=== PATIENT | male | born 1940 | race Caucasian/White ===

== ENCOUNTER 2016-12-02 16:19 | Observation (INO) ==
[2016-12-02 17:41] LABS: Basophils % 0.7 %; Eosinophils # 0.3 K/mcL (0.0-0.6); Eosinophils % 5.5 %; Hematocrit 49.3 % (37.5-50.1); Hemoglobin 16.4 g/dL (12.9-16.9); Immature Granulocytes % 0.3 % (0-4); Lymphocytes # 1.4 K/mcL (0.6-4.6); Lymphocytes % 24.7 %; Mean Corpuscular HGB Conc 33.3 g/dL (31.6-35.5); Mean Corpuscular Hemoglobin 29.5 pg (28.0-33.3); Mean Corpuscular Volume 88.7 fL (83.0-100.0); Mean Platelet Volume 11.3 fL (9.4-12.4); Monocytes # 0.5 K/mcL (0.0-1.3); Monocytes % 7.8 %; Neutrophils # 3.5 K/mcL (1.6-8.9); Platelet Count 143 K/mcL (140-400); Red Blood Count 5.56 M/mcL (4.19-5.50); Red Cell Distribution Width 13.5 % (11.5-14.5)
[2016-12-02 17:48] LABS: INR 1.1; Prothrombin Time 11.8 Seconds (9.4-12.1)
[2016-12-02 17:50] LABS: Activated Partial Thrombo Time 34.9 Seconds (26.0-36.0)
[2016-12-02 17:54] LABS: BUN/Creatinine Ratio 19 (6-26); Blood Urea Nitrogen 20 mg/dL (8-26); Calcium 9.2 mg/dL (8.6-10.8); Carbon Dioxide 26 mEq/L (19-29); Chloride 106 mEq/L (98-109); Glucose 105 mg/dL (70-99); Osmolality,Calculated 293 (280-300); Potassium 4.4 mEq/L (3.5-4.5); Sodium 140 mEq/L (136-145); eGFR For African Americans > 60 (> 60); eGFR For Non-African Americans > 60 (> 60)
[2016-12-03 00:35] LABS: Chol/HDL Ratio 4.2 (0-4.9)
[2016-12-05 05:38] LABS: Basophils # 0.1 K/mcL (0.0-0.2); Eosinophils # 0.4 K/mcL (0.0-0.6); Eosinophils % 6.4 %; Hematocrit 47.3 % (37.5-50.1); Hemoglobin 15.1 g/dL (12.9-16.9); Immature Granulocytes % 0.3 % (0-4); Lymphocytes # 1.7 K/mcL (0.6-4.6); Lymphocytes % 26.6 %; Mean Corpuscular HGB Conc 31.9 g/dL (31.6-35.5); Mean Corpuscular Hemoglobin 28.4 pg (28.0-33.3); Mean Corpuscular Volume 89.1 fL (83.0-100.0); Mean Platelet Volume 10.8 fL (9.4-12.4); Monocytes # 0.5 K/mcL (0.0-1.3); Monocytes % 8.5 %; Neutrophils # 3.6 K/mcL (1.6-8.9); Platelet Count 152 K/mcL (140-400); Red Blood Count 5.31 M/mcL (4.19-5.50); Red Cell Distribution Width 13.4 % (11.5-14.5); Segmented Neutrophils % 57.2 %
[2016-12-05 06:36] LABS: BUN/Creatinine Ratio 23 (6-26); Blood Urea Nitrogen 29 mg/dL (8-26); Calcium 8.7 mg/dL (8.6-10.8); Carbon Dioxide 27 mEq/L (19-29); Chloride 105 mEq/L (98-109); Glucose 94 mg/dL (70-99); Magnesium 2.2 mg/dL (1.6-2.6); Osmolality,Calculated 300 (280-300); Potassium 4.3 mEq/L (3.5-4.5); Sodium 142 mEq/L (136-145); eGFR For African Americans > 60 (> 60); eGFR For Non-African Americans 54 (> 60)
[2016-12-05 14:22] VITALS: BP 151/60
== END 2016-12-05 15:31 | disposition home or self-care (01) ==
LOC: 3BNU 16:19 → EMEROO 16:19 → SUATTDRO 18:26 → 3BNU 20:17
PROVIDERS: ADMIT Internal Medicine; ATTEND Internal Medicine

== ENCOUNTER 2017-09-16 10:04 | Observation (INO) ==
[2017-09-16] MEDS ORDERED: Ipratropium/Albuterol Neb 3 ML IH ONE (10:20)
[2017-09-16] MEDS ORDERED: Azithromycin 500 MG in D5% in Water 250 ML IVPB ONE (10:36)
[2017-09-16] MEDS ORDERED: cefTRIAXone 2,000 MG in Water for inj. (sterile) 20 ML IVPB ONE (10:36)
--- NOTE | 2017-09-16 10:42 | Emergency Department Note ---
Disposition Clinical Impression: SOB (shortness of breath), Hypoxia Upper respiratory infection Qualifiers: URI type: unspecified viral URI Qualified Code(s): J06.9 - Acute upper respiratory infection, unspecified Disposition: Admitted As Inpatient Condition: Good Time of Disposition: 12:53 General Adult HPI - General Chief complaint: ED Upper Respiratory Infection Stated complaint: Cough ,congestion Time Seen by Provider: 09/16/17 10:15 Source: patient, family Mode of arrival: ambulatory Limitations: no limitations Nursing Notes Reviewed: Yes Vital Signs Reviewed: Yes - History of Present Illness HPI Narrative: 77-year-old male presenting to the emergency department complaining of cough, congestion for the past week and a half. Patient states he was seen at urgent care on Thursday and diagnosed with bronchitis. He was given a prescription for 20 mg of prednisone daily along with Augmentin. He states he has not been getting better. He denies any fevers or chest pain. He denies abdominal pain, nausea or vomiting. He states his and son have similar symptoms. He does have a significant past medical history of stent placement approximately 5 years ago. He denies having any asthma or COPD. He has not tried anything else at home for this. Pain Scale: 0 - Related Data Home Medications Medication Instructions Recorded Confirmed Amlodipine Besylate 10 mg PO QAM 12/02/16 09/16/17 Aspirin Enteric Coated [Aspirin EC] 81 mg PO QAM 12/02/16 09/16/17 Atorvastatin [Lipitor] 40 mg PO QAM 12/02/16 09/16/17 Clopidogrel [Plavix] 75 mg PO QAM 12/02/16 09/16/17 Linaclotide [Linzess] 145 mcg PO QAM 12/02/16 09/16/17 Lisinopril 40 mg PO QAM 12/02/16 09/16/17 Amoxicillin/Clavulanate [Augmentin] 875 mg PO BIDWM 09/16/17 09/16/17 Furosemide [Lasix] 80 mg PO DAILY 09/16/17 09/16/17 Isosorbide MONOnitrate (24 HR) 60 mg PO DAILY 09/16/17 09/16/17 [Imdur] Metoprolol XL (24 HR) Succ [Toprol 50 mg PO DAILY 09/16/17 09/16/17 XL] hydrALAZINE [HydrALAZINE] 25 mg PO TID 09/16/17 09/16/17 Allergies Allergy/AdvReac Type Severity Reaction Status Date / Time morphine Allergy Agitated Verified 09/16/17 10:10 All systems ED: reviewed and negative except as stated. Constitutional: Denies: fever, chills Eyes: Reports: as per HPI ENT ED: Reports: congestion Cardiovascular: Denies: chest pain, palpitations Respiratory: Reports: cough, dyspnea Gastrointestinal: Denies: abdominal pain, nausea, vomiting Genitourinary: Reports: as per HPI Musculoskeletal: Reports: as per HPI Integumentary: Denies: rash, abrasion Neurological: Denies: weakness, numbness, paresthesias Psychiatric: Reports: as per HPI Endocrine: Reports: as per HPI Hematological/Lymphatic: Reports: as per HPI Allergic/Immunologic: Reports: as per HPI Past Medical History - Past Medical History Attestation: Yes The following information was validated with the patient. Medical history: Reports: coronary artery disease, hyperlipidemia, hypertension , myocardial infarction Surgical history: Reports: other (Prostate cancer status post surgery) Psychiatric history: Reports: no psych history - Social History Smoking Status: Former smoker Smokeless Tobacco Status: No Alcohol use: Reports: none Drug use: Reports: none Physical Exam - General Limitations: no limitations General appearance: alert, in no apparent distress - Head Head exam: atraumatic, normocephalic, normal inspection - Eye Eye exam: Present: normal appearance. Absent: scleral icterus, conjunctival injection - ENT ENT exam: normal exam, normal oropharynx - Neck Neck exam: Present: normal inspection, full ROM. Absent: tenderness, meningismus - Chest Chest inspection: Present: normal inspection, symmetric chest wall rise. Absent : tenderness, rash - Respiratory Respiratory exam: Present: other (Diffuse wheezing anterior and posterior bilateral lung leroy). Absent: respiratory distress, stridor, accessory muscle use - Cardiovascular Cardiovascular exam: Present: regular rate, normal rhythm, normal heart sounds - Abdominal Exam Abdominal exam: Present: soft, Non-Tender. Absent: distention, guarding, rebound - Extremities Exam Extremities exam: Present: normal inspection, full ROM - Neurological Exam Neurological exam: Present: alert, oriented X3 - Psychiatric Psychiatric exam: Present: normal affect, normal mood - Skin Skin exam: Present: warm, intact Course Course Narrative: 77-year-old male presenting to the emergency department with chief complaint of cough and congestion for a week and a half. He was seen at urgent care on Thursday and given Augmentin and prednisone and has not gotten better. Patient is diffusely wheezy on exam. We will provide him with to an abscess and a chest x-ray at this time. Patient afebrile. Vital signs stable. He is alert and oriented 3 in the room with stable vital signs. Concern for pneumonia. We will obtain basic lab work with thought that the patient may be admitted for failed outpatient therapy. We will add a CBC, CMP and blood cultures. We will also start Rocephin and Zithromax this time. - Reevaluation(s) Reevaluation #1: Patient's lab work shows elevated creatinine and acute kidney injury. We will hydrate the patient with a liter of fluids at this time. The patient is alert and oriented 3 in the room with stable vital signs. We will admit the patient for failed outpatient therapy of bronchitis at this time. Dr. Austin except the patient at this time. He would like us to obtain an EKG as well. Vital Signs Temperature 98.0 F 09/16/17 10:10 Pulse Rate 87 09/16/17 10:10 Respiratory Rate 22 09/16/17 10:10 Blood Pressure 119/69 09/16/17 10:10 O2 Sat by Pulse Oximetry 93 09/16/17 10:10 Temperature 98.0 F 09/16/17 10:10 Pulse Rate 89 09/16/17 10:25 Respiratory Rate 25 09/16/17 11:00 Blood Pressure 144/73 09/16/17 10:25 O2 Sat by Pulse Oximetry 94 09/16/17 11:00 Oxygen Delivery Oxygen Delivery Room Air Medical Decision Making - Lab Data Result diagrams: 09/16/17 10:45 09/16/17 10:45 Lab Results 09/16/17 09/16/17 Range/Units 10:45 10:45 WBC 9.9 (4.3-11.1) K/mcL RBC 5.07 (4.19-5.50) M/mcL Hgb 14.9 (12.9-16.9) g/dL Hct 45.9 (37.5-50.1) % MCV 90.5 (83.0-100.0) fL MCH 29.4 (28.0-33.3) pg MCHC 32.5 (31.6-35.5) g/dL RDW 13.8 (11.5-14.5) % Plt Count 195 (140-400) K/mcL MPV 11.3 (9.4-12.4) fL Immature Gran % 0.6 (0-4) % Seg Neutrophils % 81.8 % Lymphocytes % 11.3 % Monocytes % 6.1 % Eosinophils % 0.0 % Basophils % 0.2 % Neutrophils # 8.1 (1.6-8.9) K/mcL Lymphocytes # 1.1 (0.6-4.6) K/mcL Monocytes # 0.6 (0.0-1.3) K/mcL Eosinophils # 0.0 (0.0-0.6) K/mcL Basophils # 0.0 (0.0-0.2) K/mcL Sodium 141 (136-145) mEq/L Potassium 4.1 (3.5-4.5) mEq/L Chloride 105 (98-109) mEq/L Carbon Dioxide 26 (19-29) mEq/L BUN 46 H (8-26) mg/dL Creatinine 1.58 H (0.72-1.25) mg/dL Est GFR ( Amer) 52 L (> 60) Est GFR (Non-Af Amer) 43 L (> 60) BUN/Creatinine Ratio 29 H (6-26) Glucose 166 H (70-99) mg/dL Calculated Osmolality 308 H (280-300) Calcium 9.3 (8.6-10.8) mg/dL - EKG Data EKG #1 EKG attestation: Yes I reviewed and interpreted this EKG. EKG results narrative: Sinus rhythm with first-degree block. Left axis deviation. 90 bpm. TX interval 230, QRS 110, QTc 399. No signs of acute ST segment elevation or ischemia. When compared to previous EKG completed on 12/03/2016 no significant changes noted.
--- NOTE | 2017-09-16 10:50 | Emergency Department Note ---
START Narrative - START START: I examined this patient and my medical decision-making was reviewed with the Resident Physician. I agree with the documented findings, disposition and treatment plan as described except to the extent set forth below. 77-year-old male presents for upper respiratory type infection symptoms. I am concerned on his chest x-ray for bilateral pneumonia. He has failed outpatient therapy and is now requiring breathing treatments and likely oxygen. I feel he would need to be admitted for IV Rocephin and Zithromax. His significant other is also sick as well with the same symptoms and likely has pneumonia. We will obtain lab work, blood cultures and treat with breathing treatments. He has been on oral prednisone. will admit
[2017-09-16 10:58] LABS: Basophils % 0.2 %; Hematocrit 45.9 % (37.5-50.1); Hemoglobin 14.9 g/dL (12.9-16.9); Immature Granulocytes % 0.6 % (0-4); Lymphocytes # 1.1 K/mcL (0.6-4.6); Lymphocytes % 11.3 %; Mean Corpuscular HGB Conc 32.5 g/dL (31.6-35.5); Mean Corpuscular Hemoglobin 29.4 pg (28.0-33.3); Mean Corpuscular Volume 90.5 fL (83.0-100.0); Mean Platelet Volume 11.3 fL (9.4-12.4); Monocytes # 0.6 K/mcL (0.0-1.3); Monocytes % 6.1 %; Neutrophils # 8.1 K/mcL (1.6-8.9); Platelet Count 195 K/mcL (140-400); Red Blood Count 5.07 M/mcL (4.19-5.50); Red Cell Distribution Width 13.8 % (11.5-14.5); Segmented Neutrophils % 81.8 %
[2017-09-16 11:09] LABS: Calcium 9.3 mg/dL (8.6-10.8); Potassium 4.1 mEq/L (3.5-4.5)
[2017-09-16] MEDS ORDERED: 0.9 % Sodium Chloride 1,000 ML IVC ONE (11:17)
--- NOTE | 2017-09-16 15:03 | Internal Med History&Physical ---
Date of Encounter: 09/16/17 Time of Encounter: 13:00 Assessment and Plan (1) COPD exacerbation Current visit: Yes Status: Acute (2) History of CEA (carotid endarterectomy) Current visit: No Status: Chronic (3) Hypertension Current visit: No Status: Chronic Qualifiers: Hypertension type: essential hypertension Qualified Code(s): I10 - Essential (primary) hypertension (4) Dyslipidemia Current visit: No Status: Chronic (5) Morbid obesity with BMI of 40.0-44.9, adult Current visit: No Status: Chronic (6) Coronary artery disease Current visit: No Status: Chronic 77yo Obese male with hx of years of tobacco abuse, currently non-smoker who presents with shortness of breath, productive cough and failed outpatient treatment after taking augmentin and prednisone. For COPD exac: will start on steroids, Duonebs and IV abx. supplement oxygen to keep O2 sats above 92% ISABEL: Elevated creatinine noted, no previous bmp seen, not sure if he has chronic kidney disease, will hold home dose of Lasix and lisinopril tonight and recheck his renal function in the AM, if it starts to improve, lasix can be restarted at a lower dose. Will restrict fluids in the mean time to prevent fluid overload. Monitor ins and outs. All home meds reviewed and reconciled. Resume antilipid and other antihypertensives. Pt is full code. Qualifiers: Coronary Disease-Associated Artery/Lesion type: [place] artery Associated angina: without angina Qualified Code(s): I25.10 - Atherosclerotic heart disease of [place] coronary artery without angina pectoris Internal Medicine - H&P: HPI Chief complaint: shortness of breath Admitted From: Home Plans for Post Hospital Care: Home History of present illness: Mr. Cline is a 77 year old male with hx of CAD with stent, right CEA, prostatectomy, prior tobacco abuse who presented with the spouse, who also was being admitted for shortness of breath. He himself was complaining of shortness of breath, cough and congestion with light greenish sputum production. He said symptoms started about a week ago and when it did not get better, he went to the Urgent care center 4 days ago and was given augmentin and prednisone but still did not feel better prompting him to come to the Ed. He denies chest pain , fever, chills, abdominal pain or dysuria. Past Med Surg Social Fam HX - Past Medical History Medical history: coronary artery disease, hyperlipidemia, hypertension, myocardial infarction Psychiatric history: no psych history - Past Surgical History Surgical History: other (Prostate cancer status post surgery) - Social History Smoking Status: Former smoker Smokeless Tobacco Status: No Alcohol use: none Drug use: none - Family History Mother Living Status: Hx Family Cardiac Disorders: No Hx Family Cancer: No Hx Family GI Disorders: No Internal Medicine - H&P: Meds Amlodipine Besylate 10 mg PO QAM 12/02/16 [History] Aspirin Enteric Coated [Aspirin EC] 81 mg PO QAM 12/02/16 [History] Atorvastatin [Lipitor] 40 mg PO QAM 12/02/16 [History] Clopidogrel [Plavix] 75 mg PO QAM 12/02/16 [History] Linaclotide [Linzess] 145 mcg PO QAM 12/02/16 [History] Lisinopril 40 mg PO QAM 12/02/16 [History] Amoxicillin/Clavulanate [Augmentin] 875 mg PO BIDWM 09/16/17 [History] Furosemide [Lasix] 80 mg PO DAILY 09/16/17 [History] Isosorbide MONOnitrate (24 HR) [Imdur] 60 mg PO DAILY 09/16/17 [History] Metoprolol XL (24 HR) Succ [Toprol XL] 50 mg PO DAILY 09/16/17 [History] hydrALAZINE [HydrALAZINE] 25 mg PO TID 09/16/17 [History] 3 Allergy/AdvReac Type Severity Reaction Status Date / Time morphine Allergy Agitated Verified 09/16/17 10:10 All Systems PM: A 10-system review of systems was performed and is negative for pertinent findings except as documented above in the HPI. - Constitutional Constitutional: no chills, no fever(s), no night sweats - EENT Eyes: no change in vision, no discharge, no pain, no photophobia Ears: no ear discharge, no ear pain, no tinnitus Nose, mouth and throat: no dysphagia, no nasal discharge, no neck pain, no sore throat - Cardiovascular Cardiovascular ROS IM: no chest pain, no diaphoresis, no dyspnea, no lightheadedness, no palpitations, no syncope - Respiratory Respiratory: cough, dyspnea, wheezing, excessive phlegm production - Gastrointestinal Gastrointestinal: no abdominal pain, no diarrhea, no hematemesis, no hematochezia, no melena, no nausea, no vomiting - Musculoskeletal Musculoskeletal ROS IM: no numbness, no tingling - Integumentary Integumentary IM: no rash, no unusual bruising - Neurological Neurological ROS: no confusion, no convulsions, no focal weakness, no numbness, no tingling, no tremor(s) - Hematologic/Lymphatic Hematologic/Lymphatic: no easy bruising - Constitutional Vitals: Temp Pulse Resp BP Pulse Ox 97.7 F 93 18 134/67 92 09/16/17 14:10 09/16/17 14:10 09/16/17 14:10 09/16/17 14:10 09/16/17 14:10 General appearance: Present: A&O X 3, no acute distress - Head Head exam: Present: atraumatic, normocephalic - Eye Eye exam: Present: PERRL, conjuntiva pink, sclera anicteric Pupils: Present: PERRL - Neck Neck exam general surgery: Present: supple, trachea midline. Absent: lymphadenopathy - Respiratory Respiratory exam: Present: decreased breath sounds, wheezes. Absent: accessory muscle use, rales, rhonchi - Cardiovascular Cardiovascular exam: Present: RRR, +S1, +S2. Absent: diastolic murmur, gallop, rubs, systolic murmur - GI/Abdominal GI/Abdominal exam: Present: normal bowel sounds, soft, no peritoneal signs. Absent: distended, tenderness - Extremities Exam Extremities exam: Present: warm, radial pulses palpable and symmetrical. Absent : calf tenderness, cyanotic, pedal edema - Neurological Exam Neurological exam: Present: CN II-XII intact, oriented X3, no focal deficits. Absent: pronater drift, facial droop, speech deficit - Skin Skin exam: Present: dry, intact Internal Med - H&P Results - Labs CBC & Chem 7: 09/16/17 10:45 09/16/17 10:45
[2017-09-16] MEDS: Ipratropium/Albuterol Neb 3 ML IH SCH ×3 (15:43→21:40)
[2017-09-16] MEDS: MethylPREDNISolone 40 MG/ML VIAL IVP SCH (17:10)
[2017-09-16] MEDS: hydrALAZINE 25 MG TABLET PO SCH ×2 (17:10→21:08)
[2017-09-17] MEDS: MethylPREDNISolone 40 MG/ML VIAL IVP SCH ×2 (01:04→06:10)
[2017-09-17 04:12] LABS: Basophils % 0.3 %; Hematocrit 48.3 % (37.5-50.1); Hemoglobin 15.5 g/dL (12.9-16.9); Immature Granulocytes % 0.9 % (0-4); Lymphocytes % 9.2 %; Mean Corpuscular HGB Conc 32.1 g/dL (31.6-35.5); Mean Corpuscular Hemoglobin 29.5 pg (28.0-33.3); Mean Platelet Volume 10.8 fL (9.4-12.4); Monocytes # 0.3 K/mcL (0.0-1.3); Monocytes % 2.5 %; Neutrophils # 9.4 K/mcL (1.6-8.9); Platelet Count 196 K/mcL (140-400); Red Blood Count 5.25 M/mcL (4.19-5.50); Red Cell Distribution Width 13.7 % (11.5-14.5); Segmented Neutrophils % 87.1 %
[2017-09-17 04:17] LABS: Alanine Aminotransferase 19 Units/L (0-55); Albumin 3.4 g/dL (3.5-5.0); Albumin/Globulin Ratio 0.9 (1.1-2.2); Alkaline Phosphatase 56 Units/L (38-126); Aspartate Amino Transferase 18 Units/L (5-34); BUN/Creatinine Ratio 28 (6-26); Bilirubin,Total 0.6 mg/dL (0.2-1.2); Blood Urea Nitrogen 38 mg/dL (8-26); Calcium 9.1 mg/dL (8.6-10.8); Carbon Dioxide 25 mEq/L (19-29); Chloride 108 mEq/L (98-109); Globulin 3.7 g/dL (2.4-3.5); Glucose 144 mg/dL (70-99); Osmolality,Calculated 310 (280-300); Potassium 4.6 mEq/L (3.5-4.5); Sodium 144 mEq/L (136-145); Total Protein 7.1 g/dL (6.0-8.3); eGFR For African Americans > 60 (> 60); eGFR For Non-African Americans 51 (> 60)
[2017-09-17] MEDS: Ipratropium/Albuterol Neb 3 ML IH SCH (04:25)
[2017-09-17] MEDS: Isosorbide MONOnitrate (24 HR) 60 MG TAB.ER.24H PO SCH (08:21)
[2017-09-17] MEDS: Aspirin Enteric Coated 81 MG Tablet PO SCH (08:21)
[2017-09-17] MEDS: amLODIPine 5 MG TABLET PO SCH (08:21)
[2017-09-17] MEDS: Azithromycin 250 MG TABLET PO SCH (08:21)
[2017-09-17] MEDS: hydrALAZINE 25 MG TABLET PO SCH ×3 (08:21→21:47)
[2017-09-17] MEDS: cefTRIAXone 1,000 MG in Water for inj. (sterile) 10 ML IVP SCH (08:22)
[2017-09-17] MEDS ORDERED: Metoprolol XL (24 HR) Succ 50 MG TAB.ER.24H PO SCH (09:00)
[2017-09-17] MEDS: (Linaclotide [Linzess] 145 MCG) PO SCH (09:14)
[2017-09-17] MEDS ORDERED: Ipratropium/Albuterol Neb 3 ML IH PRN (09:52)
--- NOTE | 2017-09-17 16:13 | Internal Med Progress Note ---
Date of Encounter: 09/17/17 Time of Encounter: 09:00 - Assessment and plan (1) COPD exacerbation Current Visit: Yes Status: Acute Assessment and plan: Continue bronchodilators. Will begin tapering intravenous steroids. Monitor vital signs closely. O2 supplementation as needed. (2) Acute kidney injury Current Visit: Yes Status: Acute Assessment and plan: Renal Function improving. Creatinine 1.36 today (3) Coronary artery disease Current Visit: Yes Status: Chronic Assessment and plan: No chest pain. Continue aspirin, Lipitor, Plavix, metoprolol and Imdur. Qualifiers: Coronary Disease-Associated Artery/Lesion type: [place] artery Associated angina: without angina Qualified Code(s): I25.10 - Atherosclerotic heart disease of [place] coronary artery without angina pectoris (4) Dyslipidemia Current Visit: Yes Status: Chronic Assessment and plan: Continue Lipitor (5) Hypertension Current Visit: Yes Status: Chronic Assessment and plan: Blood pressure is elevated this morning. Continue home medications. If persistently elevated, will increase metoprolol dosage Qualifiers: Hypertension type: essential hypertension Qualified Code(s): I10 - Essential (primary) hypertension - Subjective Interval history: Patient is feeling better today. Shortness of breath and wheezing has improved. Denies any fever or chills overnight. No chest pain. Does have cough with mild green sputum production. - Constitutional Vitals: Temp Pulse Resp BP Pulse Ox 97.4 F L 89 20 139/72 93 09/17/17 15:41 09/17/17 15:41 09/17/17 15:41 09/17/17 15:41 09/17/17 15:41 General appearance: Present: A&O X 3, no acute distress, answers questions appropriately - Neck Neck exam general surgery: Present: supple, trachea midline. Absent: lymphadenopathy - Respiratory Respiratory exam: Present: prolonged expiratory phase, wheezes (Mild bilateral end expiratory). Absent: accessory muscle use, rales, rhonchi - Cardiovascular Cardiovascular exam: Present: RRR, +S1, +S2. Absent: diastolic murmur, gallop, rubs, systolic murmur - Neurological Exam Neurological exam: Present: CN II-XII intact, oriented X3, no focal deficits. Absent: facial droop, speech deficit - Skin Skin exam: Present: dry, intact Internal Medicine: Result - Labs CBC & Chem 7: 09/17/17 03:32 09/17/17 03:32 Labs: Short CBC 09/17/17 Range/Units 03:32 WBC 10.8 (4.3-11.1) K/mcL Hgb 15.5 (12.9-16.9) g/dL Hct 48.3 (37.5-50.1) % Plt Count 196 (140-400) K/mcL Neutrophils # 9.4 H (1.6-8.9) K/mcL BMP 09/17/17 03:32 Sodium 144 Potassium 4.6 H Chloride 108 Carbon Dioxide 25 BUN 38 H Creatinine 1.36 H Glucose 144 H Calcium 9.1 Liver Function 09/17/17 Range/Units 03:32 Total Bilirubin 0.6 (0.2-1.2) mg/dL AST 18 (5-34) Units/L ALT 19 (0-55) Units/L Alkaline Phosphatase 56 (38-126) Units/L Albumin 3.4 L (3.5-5.0) g/dL Consult Discharge Plan - Plan Referrals: Reinier Hill Jr, MD [Primary Care Provider] -
--- NOTE | 2017-09-17 16:45 | Electrocardiograph Report ---
[place] [id number] Test Date: 2017-09-16 Pat Name: Ashly Cline Department: 103 Room: 3B24 Gender: M Lighting Engineer: RK : 1940 Requested By: Erica Tran Order Number: [id number] Reading MD: Janette Castaneda Measurements Intervals [place] Rate: 90 P: 63 [place]: 230 QRS: -59 QRSD: 110 T: 75 QT: 352 QTc: 399 Interpretive Statements SINUS RHYTHM WITH FIRST DEGREE AV BLOCK LEFT AXIS DEVIATION [QRS AXIS < -30] IVCD ANTEROSEPTAL MYOCARDIAL INFARCTION [40+ ms Q WAVE IN V1-V4], OF INDETERMINATE AGE Electronically Signed On 09-17-2017 16:43:57 EST by Janette Castaneda
[2017-09-18 05:56] LABS: BUN/Creatinine Ratio 33 (6-26); Blood Urea Nitrogen 41 mg/dL (8-26); Carbon Dioxide 26 mEq/L (19-29); Chloride 108 mEq/L (98-109); Glucose 101 mg/dL (70-99); Osmolality,Calculated 306 (280-300); Sodium 143 mEq/L (136-145); eGFR For African Americans > 60 (> 60); eGFR For Non-African Americans 55 (> 60)
[2017-09-18 05:57] LABS: Potassium 4.7 mEq/L (3.5-4.5)
[2017-09-18 07:07] VITALS: BP 164/88
[2017-09-18] MEDS ORDERED: Metoprolol XL (24 HR) Succ 50 MG TAB.ER.24H PO SCH (08:23)
[2017-09-18] MEDS: amLODIPine 5 MG TABLET PO SCH (08:44)
[2017-09-18] MEDS: Azithromycin 250 MG TABLET PO SCH (08:44)
[2017-09-18] MEDS: hydrALAZINE 25 MG TABLET PO SCH (08:44)
[2017-09-18] MEDS: Isosorbide MONOnitrate (24 HR) 60 MG TAB.ER.24H PO SCH (08:44)
[2017-09-18] MEDS: cefTRIAXone 1,000 MG in Water for inj. (sterile) 10 ML IVP SCH (08:44)
[2017-09-18] MEDS: Aspirin Enteric Coated 81 MG Tablet PO SCH (08:44)
[2017-09-18] MEDS: (Linaclotide [Linzess] 145 MCG) PO SCH (08:45)
--- NOTE | 2017-09-18 08:48 | Discharge Summary ---
Date of Encounter: 09/18/17 Time of Encounter: 08:46 - Discharge Diagnosis (1) COPD exacerbation Priority: Primary Status: Acute (2) Acute kidney injury Priority: Secondary Status: Acute (3) Coronary artery disease Priority: Secondary Status: Chronic Qualifiers: Coronary Disease-Associated Artery/Lesion type: [place] artery [place] vs. transplanted heart: [place] heart Associated angina: without angina Qualified Code(s): I25.10 - Atherosclerotic heart disease of [place] coronary artery without angina pectoris (4) Dyslipidemia Priority: Secondary Status: Chronic (5) Hypertension Priority: Secondary Status: Chronic Qualifiers: Hypertension type: essential hypertension Qualified Code(s): I10 - Essential (primary) hypertension - Discharge Medications Prescriptions: Albuterol Sulfate [Albuterol Inhaler] 2 puff IH Q4HR PRN #1 hfa.[email or web address] PRN Reason: Shortness Of Breath GuaiFENesin Liq [Robitussin Liq] 200 mg PO Q6HR #250 mls Cefuroxime PO [Ceftin] 500 mg PO Q12HR #8 tablet Azithromycin [Zithromax] 500 mg PO DAILY #6 tablet Metoprolol XL (24 HR) Succ [Toprol Xl] 100 mg PO DAILY #60 tab.er.24h predniSONE [PredniSONE] 10 mg PO DAILY 8 Days tablet Home Medications: Amlodipine Besylate 10 mg PO QAM 12/02/16 [History] Aspirin Enteric Coated [Aspirin EC] 81 mg PO QAM 12/02/16 [History] Atorvastatin [Lipitor] 40 mg PO QAM 12/02/16 [History] Clopidogrel [Plavix] 75 mg PO QAM 12/02/16 [History] Linaclotide [Linzess] 145 mcg PO QAM 12/02/16 [History] Lisinopril 40 mg PO QAM 12/02/16 [History] Furosemide [Lasix] 80 mg PO DAILY 09/16/17 [History] Isosorbide MONOnitrate (24 HR) [Imdur] 60 mg PO DAILY 09/16/17 [History] hydrALAZINE [HydrALAZINE] 25 mg PO TID 09/16/17 [History] Albuterol Sulfate [Albuterol Inhaler] 2 puff IH Q4HR PRN #1 hfa.aer.ad 09/18/17 [Rx] Azithromycin [Zithromax] 500 mg PO DAILY #6 tablet 09/18/17 [Rx] Cefuroxime PO [Ceftin] 500 mg PO Q12HR #8 tablet 09/18/17 [Rx] GuaiFENesin Liq [Robitussin Liq] 200 mg PO Q6HR #250 mls 09/18/17 [Rx] Metoprolol XL (24 HR) Succ [Toprol Xl] 100 mg PO DAILY #60 tab.er.24h 09/18/17 [ Rx] predniSONE [PredniSONE] 10 mg PO DAILY 8 Days tablet 09/18/17 [Rx] Allergies/Adverse Reactions: 3 Allergy/AdvReac Type Severity Reaction Status Date / Time morphine Allergy Agitated Verified 09/16/17 10:10 Date of admission: 09/16/17 12:37 Primary care physician: Reinier Hill Jr, MD Discharging clinician: Martin Benitez Anticipated date of discharge: 09/18/17 - Patient Status Disposition: Home, Self-Care Condition: Good Functional capacity at discharge: independent ambulation Overall status at discharge: patient is progressing back to baseline - Ambulatory Orders Ambulatory Orders: Basic Metabolic Panel [CHEM] Time Frame: 3 Days, Facility: [facility], Location: Lab - Discharge Instructions Instructions: Cefuroxime (By mouth), Metoprolol (By mouth), Prednisone (By mouth), Dextromethorphan (By mouth), Azithromycin (By mouth), Chronic Hypertension (DC) Follow Up With: Reinier Hill Jr, MD [Primary Care Provider] - (in 1 week, office will call with an appointment time and date) - Diet and Activity Activity: increase activity as tolerated Diet: low fat, low cholesterol, low salt diet Hospital course: Mr. Cline is a 77 year old male patient with a history of coronary artery disease, prostatectomy, hypertension, hyperlipidemia and chronic prior tobacco use presented to the ER with complaints of shortness of breath on productive cough. He was diagnosed with acute COPD exacerbation and hospitalized here. He was treated with bronchodilators, intravenous steroids and antibiotics. His symptoms have slowly improved since then and is now doing much better. He is clinically stable to be discharged home at this time and will be discharged on steroid taper and a short course of antibiotics. - Time Spent with Patient Total time spent providing and/or coordinating discharge services: Less than 30 minutes (25 min) - Constitutional Vitals: Temp Pulse Resp BP Pulse Ox 97.6 F 77 20 164/88 95 09/18/17 07:05 09/18/17 07:05 09/18/17 07:05 09/18/17 07:05 09/18/17 07:05 General appearance: Present: A&O X 3, no acute distress, answers questions appropriately - Respiratory Respiratory exam: Present: prolonged expiratory phase, wheezes (mild end expiratory). Absent: accessory muscle use, rales, rhonchi - Cardiovascular Cardiovascular exam: Present: RRR, +S1, +S2. Absent: diastolic murmur, gallop, rubs, systolic murmur - GI/Abdominal GI/Abdominal exam: Present: normal bowel sounds, soft, no peritoneal signs. Absent: distended, tenderness - Extremities Exam Extremities exam: Present: warm, radial pulses palpable and symmetrical. Absent : calf tenderness, cyanotic, pedal edema
[2017-09-18] MEDS ORDERED: predniSONE 20 MG TABLET PO SCH (09:00)
== END 2017-09-18 10:59 | disposition home or self-care (01) ==
LOC: 3BNU 10:04 → EMEROO 10:04 → SUATTDRO 12:37 → 3BNU 13:49
PROVIDERS: ADMIT Internal Medicine; ATTEND Internal Medicine

== ENCOUNTER 2021-01-17 02:28 | Observation (INO) ==
[2021-01-17] MEDS ORDERED: Isovue-370 500 ML BOTTLE IVP ONE (02:36)
[2021-01-17 03:01] LABS: Basophils % 0.5 %; Eosinophils # 0.1 K/mcL (0.0-0.6); Eosinophils % 1.8 %; Hematocrit 41.1 % (37.5-50.1); Hemoglobin 13.3 g/dL (12.9-16.9); Immature Granulocytes % 0.5 % (0-4); Lymphocytes # 1.2 K/mcL (0.6-4.6); Lymphocytes % 17.6 %; Mean Corpuscular HGB Conc 32.4 g/dL (31.6-35.5); Mean Corpuscular Volume 95.8 fL (83.0-100.0); Mean Platelet Volume 11.1 fL (9.4-12.4); Monocytes # 0.7 K/mcL (0.0-1.3); Monocytes % 11.1 %; Neutrophils # 4.5 K/mcL (1.6-8.9); Platelet Count 195 K/mcL (140-400); Red Blood Count 4.29 M/mcL (4.19-5.50); Red Cell Distribution Width 13.7 % (11.5-14.5); Segmented Neutrophils % 68.5 %; White Blood Count 6.6 K/mcL (4.3-11.1)
[2021-01-17 03:19] LABS: BUN/Creatinine Ratio 21 (6-26); Blood Urea Nitrogen 48 mg/dL (8-23); Calcium 8.9 mg/dL (8.6-10.3); Carbon Dioxide 24 mEq/L (23-29); Chloride 104 mEq/L (98-107); Glucose 104 mg/dL (70-105); Osmolality,Calculated 299 (280-300); Potassium 4.1 mEq/L (3.5-5.1); Sodium 138 mEq/L (136-145); Troponin I < 0.03 ng/mL (< 0.04); eGFR For African Americans 34 (> 60); eGFR For Non-African Americans 28 (> 60)
[2021-01-17] MEDS ORDERED: 0.9 % Sodium Chloride 1,000 ML IVC ONE ×2 (04:14→07:05)
[2021-01-17] MEDS ORDERED: Ampicillin/Sulbactam 1,500 MG in 0.9 % Sodium Chloride Mini Bag 100 ML IVPB ONE (04:21)
[2021-01-17] MEDS ORDERED: Melatonin 3 MG TABLET PO PRN (05:42)
[2021-01-17] MEDS ORDERED: Acetaminophen 325 MG TABLET PO PRN (05:42)
[2021-01-17] MEDS ORDERED: Naloxone 0.4 MG/ML INJ IVP PRN (05:42)
[2021-01-17] MEDS ORDERED: Ondansetron 4 MG/2 ML VIAL IVP PRN (05:42)
[2021-01-17 10:08] LABS: Bilirubin,Urine Negative (Negative); Blood,Urine Negative (Negative); Clarity,Urine Clear (Clear); Color,Urine Light-Yellow (Yellow); Glucose,Urine (UA) Normal (Normal); Ketones,Urine Negative (Negative); Leukocyte Esterase,Urine Negative (Negative); Nitrite,Urine Negative (Negative); PH,Urine 5.5 pH Units (5.0-8.0); Protein,Urine Negative (Neg-Trace); Specific Gravity,Urine 1.017 (1.010-1.025); Urobilinogen,Urine Normal (Normal)
[2021-01-17] MEDS ORDERED: *HR* Metoprolol 5 MG/5 ML VIAL IVP STA (13:05)
[2021-01-17] MEDS ORDERED: *HR* HYDROcodone/Acet 5/325 mg TABLET PO PRN (14:52)
[2021-01-18 08:55] LABS: Calcium 9.2 mg/dL (8.6-10.3); Potassium 4.4 mEq/L (3.5-5.1)
[2021-01-18] MEDS ORDERED: *HR* Rivaroxaban 10 MG TABLET PO SCH (09:00)
[2021-01-18] MEDS ORDERED: Aspirin Enteric Coated 81 MG Tablet PO SCH (09:00)
[2021-01-18] MEDS ORDERED: amLODIPine 5 MG TABLET PO SCH (09:00)
[2021-01-18] MEDS ORDERED: Budesonide/Formoterol 160/4.5 1 PUFF INH IH SCH (09:00)
[2021-01-18] MEDS ORDERED: allopurinoL 300 MG TABLET PO SCH (09:00)
[2021-01-18] MEDS ORDERED: Furosemide 40 MG TABLET PO SCH (09:00)
[2021-01-18 11:33] VITALS: BP 119/82
== END 2021-01-18 14:06 | disposition home health service (06) ==
LOC: EMEROOARM 02:28 → CDU 02:28 → 3ANU 18:52
PROVIDERS: ADMIT Family Medicine; ATTEND Family Medicine

== ENCOUNTER 2022-05-20 10:57 | Observation (INO) ==
[2022-05-20 12:28] LABS: Basophils % 0.3 %; Eosinophils # 0.2 K/mcL (0.0-0.6); Eosinophils % 1.7 %; Hematocrit 47.2 % (37.5-50.1); Immature Granulocytes % 0.5 % (0-4); Lymphocytes # 0.7 K/mcL (0.6-4.6); Lymphocytes % 7.1 %; Mean Corpuscular HGB Conc 31.8 g/dL (31.6-35.5); Mean Corpuscular Hemoglobin 29.4 pg (28.0-33.3); Mean Corpuscular Volume 92.5 fL (83.0-100.0); Mean Platelet Volume 11.1 fL (9.4-12.4); Monocytes # 0.3 K/mcL (0.0-1.3); Monocytes % 3.6 %; Neutrophils # 8.1 K/mcL (1.6-8.9); Platelet Count 146 K/mcL (140-400); Red Cell Distribution Width 14.6 % (11.5-14.5); Segmented Neutrophils % 86.8 %; White Blood Count 9.4 K/mcL (4.3-11.1)
[2022-05-20 12:28] LABS: VBG HCO3 29 mEq/L (21-27); VBG PCO2 59 mmHg (41-51); VBG PO2 37 mmHg (25-50)
[2022-05-20 12:40] LABS: INR 1.6; Prothrombin Time 18.1 Seconds (9.4-12.1)
[2022-05-20 12:51] LABS: Alanine Aminotransferase 9 Units/L (7-52); Albumin 4.3 g/dL (3.5-5.7); Albumin/Globulin Ratio 1.7 (1.1-2.2); Alkaline Phosphatase 60 Units/L (34-104); Aspartate Amino Transferase 15 Units/L (13-39); BUN/Creatinine Ratio 19 (6-26); Bilirubin,Direct 0.2 mg/dL (0.0-0.2); Bilirubin,Indirect 0.6 mg/dL (0.0-1.0); Bilirubin,Total 0.8 mg/dL (0.3-1.0); Blood Urea Nitrogen 29 mg/dL (8-23); Calcium 9.7 mg/dL (8.6-10.3); Carbon Dioxide 31 mEq/L (23-29); Chloride 101 mEq/L (98-107); Globulin 2.6 g/dL (2.4-3.5); Glucose 152 mg/dL (70-105); Lipase 28 Units/L (11-82); Magnesium 2.1 mg/dL (1.6-2.6); Osmolality,Calculated 297 (280-300); Potassium 4.7 mEq/L (3.5-5.1); Sodium 139 mEq/L (136-145); Total Protein 6.9 g/dL (6.4-8.9); Troponin I < 0.03 ng/mL (< 0.04)
[2022-05-20 13:03] LABS: Thyroid Stimulating Hormone 5.273 mcIU/mL (0.340-5.600)
[2022-05-20 13:38] LABS: Influenza A PCR Negative (Negative); Influenza B PCR Negative (Negative); Resp. Syncytial Virus PCR Negative (Negative)
[2022-05-20 13:53] LABS: SARS-CoV-2 by PCR (In House) Negative (Negative)
[2022-05-20 14:03] LABS: Bilirubin,Urine Negative (Negative); Blood,Urine Negative (Negative); Clarity,Urine Clear (Clear); Color,Urine Light-Yellow (Yellow); Glucose,Urine (UA) Normal (Normal); Ketones,Urine Negative (Negative); Leukocyte Esterase,Urine Negative (Negative); Nitrite,Urine Negative (Negative); PH,Urine 7.5 pH Units (5.0-8.0); Protein,Urine Trace mg/dL (Neg-Trace); Urobilinogen,Urine Normal (Normal)
[2022-05-20] MEDS ORDERED: Furosemide 40 MG/4 ML VIAL IVP ONE (14:08)
[2022-05-20] MEDS ORDERED: Ondansetron 4 MG/2 ML VIAL IVP PRN (15:35)
[2022-05-20] MEDS ORDERED: Naloxone 0.4 MG/ML INJ IVP PRN (15:35)
[2022-05-21 01:39] LABS: Basophils % 0.3 %; Eosinophils # 0.3 K/mcL (0.0-0.6); Eosinophils % 2.9 %; Hematocrit 44.6 % (37.5-50.1); Hemoglobin 14.3 g/dL (12.9-16.9); Immature Granulocytes % 0.2 % (0-4); Lymphocytes # 1.1 K/mcL (0.6-4.6); Lymphocytes % 12.4 %; Mean Corpuscular HGB Conc 32.1 g/dL (31.6-35.5); Mean Corpuscular Hemoglobin 29.2 pg (28.0-33.3); Mean Platelet Volume 11.2 fL (9.4-12.4); Monocytes # 0.8 K/mcL (0.0-1.3); Monocytes % 8.8 %; Neutrophils # 6.7 K/mcL (1.6-8.9); Platelet Count 162 K/mcL (140-400); Red Cell Distribution Width 14.4 % (11.5-14.5); Segmented Neutrophils % 75.4 %; White Blood Count 8.9 K/mcL (4.3-11.1)
[2022-05-21 01:42] LABS: Magnesium 2.1 mg/dL (1.6-2.6); Potassium 4.4 mEq/L (3.5-5.1)
[2022-05-21] MEDS: Metoprolol XL (24 HR) Succ 50 MG TAB.ER.24H PO SCH (08:18)
[2022-05-21] MEDS: Aspirin Enteric Coated 81 MG Tablet PO SCH (08:18)
[2022-05-21] MEDS ORDERED: Furosemide 40 MG/4 ML VIAL IVP SCH (09:00)
[2022-05-21] MEDS: Levothyroxine 25 MCG TABLET PO SCH (10:24)
[2022-05-21] MEDS: Albumin 25% 25gram/100mL 25 GM/100 ML IV.SOLN IVPB SCH ×3 (10:25→23:52)
[2022-05-21] MEDS: Budesonide/Formoterol 160/4.5 1 PUFF INH IH SCH ×2 (10:49→20:18)
[2022-05-21] MEDS ORDERED: *HR* Rivaroxaban 10 MG TABLET PO SCH (17:00)
[2022-05-22 02:25] LABS: Calcium 8.8 mg/dL (8.6-10.3); Phosphorous 3.2 mg/dL (2.7-4.5); Potassium 4.1 mEq/L (3.5-5.1)
[2022-05-22 06:36] VITALS: BP 115/79; PULSE 77; TEMP 97.8; O2SAT 96
[2022-05-22] MEDS: Aspirin Enteric Coated 81 MG Tablet PO SCH (08:18)
[2022-05-22] MEDS: Levothyroxine 25 MCG TABLET PO SCH (08:18)
[2022-05-22] MEDS: Metoprolol XL (24 HR) Succ 50 MG TAB.ER.24H PO SCH (08:18)
[2022-05-22] MEDS: Budesonide/Formoterol 160/4.5 1 PUFF INH IH SCH (08:21)
[2022-05-22] MEDS ORDERED: Furosemide 40 MG TABLET PO SCH (09:00)
== END 2022-05-22 10:52 | disposition home or self-care (01) ==
LOC: EMEROOARM 10:57 → 3BNU 10:57 → SUATTDRO 20:11 → 3BNU 21:20
PROVIDERS: ADMIT Internal Medicine; ATTEND Internal Medicine